=== PATIENT | female | born 1985 | race Caucasian/White ===

== ENCOUNTER 2024-08-11 08:55 | Day surgery (SDC) | payer BC ==
[2024-08-06 15:22] VITALS: BP 111/68
[~2024-08-11] VITALS: Ht 172.7 cm; Wt 90.9 kg
[~2024-08-11 08:55] MED LIST: 24 HOUR ALLER15.8 ML NAS; 24HOUR ALLERGY10 MG PO; ALBUTEROL2.5 MG/3 M INH; APPLE CIDER VI300 MG PO; AZO BLADDER CO300 MG PO; BENZONATATE200 MG PO; BOTULINUM TOXIN TYPE A 100 UNITS VIAL IM SCH; BREYNA 160-4.10.3 GM IH; BREYNA 160-4.10.3 GM INH; BUDESONIDE-FO10.2 G1 IH; BUPROPION HCL150 M2 PO; CALCIUM 600 MG1 EAC7 PO; CEFAZOLIN SODIUM 2 GM/20 ML SYR IV SCH; COLLAGEN SKIN1 EACH PO; DIGESTIVE ADVA1 EAC3 PO; DOXYCYCLINE HY100 MG PO; EC-NAPROXEN375 MG PO; HYDROmorphone HCL 1 MG/ML SYR IV PRN; IBLOOD GLUCOSE TEST STRIP 1 EA TEST VI PRN; LACTATED RINGER'S 1,000 ML IV SCH; LIDOCAINE HCL 1% 5 ML SDV INJ ONE; LIDOCAINE HCL1 EACH TP; MORPHINE SULFATE 4 MG/ML VIAL IV PRN; OXYCODONE/APAP 5/325 TAB PO PRN; PHENAZOPYRIDINE HCL 95 MG TAB PO PRN; PREVACID 24HR15 MG PO; SERTRALINE HCL50 MG PO; TRAMADOL HCL50 MG PO; VITAMIN D350 MCG PO; [UNRECOGNIZED DRUG - OTHER]; ondansetron HCL 4 MG/2 ML VIAL IV PRN
[2024-08-11 09:11] VITALS: BP 113/74
[2024-08-11] MEDS ORDERED: VENTOLIN HFA18 GM INH (09:17)
[2024-08-11] MEDS ORDERED: ONDANSETRON ODT4 MG PO (09:27)
[2024-08-11] MEDS ORDERED: CEPHALEXIN500 MG PO (09:28)
[2024-08-11] MEDS ORDERED: DEXAMETHASONE SOD PHOS 4 MG/ML VIAL ONE (10:02)
[2024-08-11] MEDS ORDERED: fentaNYL citrate 100 MCG/2 ML VIAL ONE (10:02)
[2024-08-11] MEDS ORDERED: ondansetron HCL 4 MG/2 ML VIAL ONE (10:02)
[2024-08-11] MEDS ORDERED: KETAMINE in NS 50 MG/5 ML SYR ONE (10:02)
[2024-08-11] MEDS ORDERED: propofoL 200 MG/20 ML VIAL ONE (10:02)
[2024-08-11 12:22] VITALS: BP 104/73
--- NOTE | 2024-08-11 12:24 | NUR ---
08/11/24 1224 Kirstie Solorzano 1112 PT ARRIVED IN PACU WIDE AWAKE WITH NO C/O'S. 1120 SITTING UP IN BED SIPPING ON WATER. 1135 UP TO BATHROOM. UNABLE TO VOID. BACK IN BED SIPPING ON WATER AND JUICE. 1150 UP TO BATHROOM. VOIDED 100ML. BACK AT BEDSIDE GETTING DRESSED. 1200 DC INSTRUCTIONS GIVEN. ALL QUESTIONS ANSWERED. LEFT VIA W/C.
== END 2024-08-11 12:10 | disposition home or self-care (01) ==
LOC: OPS 08:55 → DS 08:55 → OPS 10:00 → DS 10:45 → OPV-DS 10:45 → OPS 10:45 → DS 12:00 → OPS 12:10
PROVIDERS: ATTEND Urology
PROC: 3E0K8GC Introduction of Other Therapeutic Substance into Genitourinary Tract, Via Natural or Artificial Opening Endoscopic (ICD-10-PCS; principal; 2024-08-11 10:00)
DX: N32.81 Overactive bladder (principal); N39.46 Mixed incontinence; K21.9 Gastro-esophageal reflux disease without esophagitis; Z79.899 Other long term (current) drug therapy
CPT/HCPCS: 00910; J0585; J0690; J1100; J2405; J2704; J3010; J3490; J7121; L8606

== ENCOUNTER 2025-04-27 10:38 | Emergency (ER) | payer BC ==
[~2025-04-27] VITALS: Ht 172.7 cm; Wt 98.0 kg
[~2025-04-27 10:38] MED LIST changes: -BOTULINUM TOXIN TYPE A 100 UNITS VIAL IM SCH; -CEFAZOLIN SODIUM 2 GM/20 ML SYR IV SCH; +CEPHALEXIN500 MG PO; +CHROMIUM PIC1000 MCG PO; +ESOMEPRAZOLE MA20 MG PO; +FISH OIL 1,001000 MG PO; +HAIR SKIN NAIL1 EACH PO; -HYDROmorphone HCL 1 MG/ML SYR IV PRN; -IBLOOD GLUCOSE TEST STRIP 1 EA TEST VI PRN; -LACTATED RINGER'S 1,000 ML IV SCH; -LIDOCAINE HCL 1% 5 ML SDV INJ ONE; +LIDOCAINE PAIN1 EACH TOP; +MAGNESIUM CITR100 M1 PO; -MORPHINE SULFATE 4 MG/ML VIAL IV PRN; +ONDANSETRON ODT4 MG PO; -OXYCODONE/APAP 5/325 TAB PO PRN; -PHENAZOPYRIDINE HCL 95 MG TAB PO PRN; +VENTOLIN HFA18 GM INH; +VITAMIN C1000 MG; +VITAMIN E100 UNI2 PO; -ondansetron HCL 4 MG/2 ML VIAL IV PRN
[2025-04-27] MEDS ORDERED: CEPHALEXIN500 M1 PO (12:06)
[2025-04-27 12:26] VITALS: BP 115/83
== END 2025-04-27 12:26 | disposition home or self-care (01) ==
LOC: ED 10:38
DX: L03.113 Cellulitis of right upper limb (principal); T22.021A Burn of unspecified degree of right elbow, initial encounter; X15.8XXA Contact with other hot household appliances, initial encounter; G47.33 Obstructive sleep apnea (adult) (pediatric); Z79.899 Other long term (current) drug therapy
CPT/HCPCS: 99282